=== PATIENT | female | born 1985 | race Caucasian/White ===

== ENCOUNTER 2018-05-10 13:57 | Emergency (ER) | payer OTHER ==
[2018-05-10 14:15] VITALS: BMI 34.0
--- NOTE | 2018-05-10 16:39 | OBHP ---
Datetime: 05/10/2018 16:34 IP Adm Impression: Term, intrauterine ; No Active Labor; Intact Membranes IP Admit Plan: Observation/Evaluation; Discharge home Admit Comment, IP Provider: Patient is a 33-year-old 7 para 2 estimated gestational age 38+ weeks patient presents to labor and delivery complaining of vaginal discharge and leaking for one wee k's duration. Patient reports good movement no vaginal bleeding occasional uterine contractions . care unremarkable Past medical history none Past surgical history none No known drug allergies Social history denies alcohol tobacco use Review of systems patient denies headache chest pain shortness of breath palpitations nausea vomit ing diarrhea heat or cold intolerance easy bruisability musculoskeletal or neurological complaints Vital signs stable afebrile Physical exam see notes Intrauterine at 38+ weeks Sterile speculum exam no pooling noted creamy white discharge noted Sonogram vertex presentation CECILIA 10 Will allow patient to ambulate reexamine possible discharge Pelvic Type - PN: Adequate Extremities - PN: Normal Abdomen - PN: Normal Back - PN: Normal Breast - PN: Not Done Lungs - PN: Normal Heart - PN: Normal Thyroid - PN: Normal Neurologic - PN: Normal HEENT - PN: Normal General - PN: Normal Presentation-Admit: Vertex FHR - Baseline A Provider: 145 Gestation - Est Wks by US: 38.0 Pool Provider: Negative Vital Signs Provider: Reviewed IP Chief Complaint: Uterine contractions; Suspected ruptured membranes NICHD Variability Prov Fetus A: Moderate 6-25bpm NICHD Accel Fetus A IP Provider: [id number] FHR Category Provider Fetus A: Category I NICHD Decel Fetus A IP Provider: None Dilatation, Provider: 1 Effacement, Provider: 50 Station, Provider: -2 Genitourinary Exam: Normal DTRs - PN: Normal
[2018-05-10 22:11] VITALS: BP 117/77; PULSE 78; RESP 18; TEMP 98.4; O2SAT 99
== END 2018-05-10 17:45 | disposition home or self-care (01) ==
LOC: H.EROB2 13:57
DX: O34.63 Maternal care for abnormality of vagina, third trimester (principal); N89.8 Other specified noninflammatory disorders of vagina; Z3A.38 38 weeks gestation of pregnancy; O47.1 False labor at or after 37 completed weeks of gestation

== ENCOUNTER 2018-05-11 08:51 | Inpatient (IN) | payer OTHER ==
[2018-05-11 10:28] VITALS: BMI 32.5
--- NOTE | 2018-05-11 13:31 | US ---
Date of service: 05/11/2018 PROCEDURE: OB Pelvic Ultrasound HISTORY: patient states decreased FM LMP: July 2017 COMPARISON: None available. FINDINGS: UTERUS: Placenta: Fundal/ posterior. Presentation: Cephalic BPD: 8.8 cm compatible with estimated gestational age of 35 weeks, 4 days. HC: 31.8 cm compatible with estimated gestational age of 35 weeks, 6 days. AC: 31.4 cm with estimated gestational age of 35 weeks, 2 days. FL: 7.2 cm compatible with estimated gestational age of 36 weeks, 5 days. Heart rate: 148 bpm. age (Ultrasound estimated): 35 weeks, 6 days Joanna-gestational hemorrhage: None. Date of delivery (Ultrasound estimated) : 06/09/2018 CECILIA: 7.71 cm Estimated weight: 2754 grams 4 13.1 grams (6 pounds 1 ounce 15 ounce) Breathing movements: 2 movements: 2 Tone: 2 Amniotic Fluid: 2 CERVIX: Measures 3.1 cm. Long and closed. No cervical abnormality seen. FREE FLUID: None. OTHER FINDINGS: None. IMPRESSION: Biophysical profile score: 8/8.
[2018-05-11 16:11] LABS: BASO % 0.4 % (0.0-2.0); EOS % 0.5 % (0.0-4.0); HEMOGLOBIN 13.7 g/dL (12.0-16.0); LYMPH % 24.8 % (20.0-40.0); MEAN CELL VOLUME 90.8 fl (81.0-99.0); MEAN CORPUSCULAR HEMOGLOBIN 31.8 pg (27.0-31.0); MONO # 0.6 K/uL (0.0-0.8); MONO % 7.3 % (0.0-10.0); NEUT # 5.3 K/uL (1.8-7.0); NRBC % 0.1 % (0.0-0.0); RBC 4.31 Mil/uL (3.80-5.20); RED CELL DISTRIBUTION WIDTH 13.6 % (11.5-14.5)
--- NOTE | 2018-05-11 22:50 | OBADHP ---
Datetime: 05/11/2018 10:30 Admit Comment, IP Provider: PNP: [facility] LMP; 08/11/2017 33 y/o at 39 wks is c/o some vaginal spotting _ decreased movement. Pt denied any contractions. Patient was here yesterday c/o vaginal discharge _ leaking of fluid x 1 wk. At that ti me, speculum exam was done. No pooling noted, but there was a white, creamy discharge. OBGYNhx: DNC- 2001 - 2005 termination of x -2016 2 living children, , M x 2 PMHx: none Allergies: none Meds: prenatals Surghx: termination of x -2016 Abscess removed -2007 - 2005 DNC- 2001 Sochx: neg for tobacco, EtOH or elicit drug use ROS: neg for cp/sob, blurred vision or abdominal pain PE: gen: well appearing female in no acute distress cardio: s1s2, no mumurs resp: clear to auscultation b/l Abd; BS + Ext: calves nontender A/P: 3 y/o at 39 wks based off of LMP (08/11/2018) 1. Vaginal spotting _ decreased FM- NST performed, reactive with mod variability; will send pt for BPP. -Patient admitted for induction of labor; Fetus found to be small for gestational age. Will start cervidil. Case discussed with Dr. Jake Card PGY-1 Addendum: @39 weeks gestational age presents with complaints of spotting. While at [facility], heart tr acing category 1 biophysical profile 8 out of 8. Estimated weight consistent with 35 weeks gest ational age. All records reviewed. Patient with good dating, first ultrasound at approximate ly 11 weeks confirmed estimated due date 05/18/2018 I discussed these findings with patient and discussed options with patient. I discussed the option of expectant management versus induction of labor. After discussion of all options, patient opted fo r induction of labor. Discussed with patient the risks, benefits, alternatives of induction and all p atient questions answered. Cervidil placed vaginally. Extremities - PN: Normal Abdomen - PN: Normal Lungs - PN: Normal Heart - PN: Normal General - PN: Normal FHR - Baseline A Provider: 140s Membranes, Provider: Intact Contraction Comments Provider: none Gestation - Est Wks by US: 39.0 IP Hx Assessment: The History has been Reviewed and is Current Vital Signs Provider: Reviewed; Within Normal Limits IP Chief Complaint: Other NICHD Variability Prov Fetus A: Moderate 6-25bpm NICHD Accel Fetus A IP Provider: [id number] FHR Category Provider Fetus A: Category I NICHD Decel Fetus A IP Provider: None Dilatation, Provider: 0 Effacement, Provider: 0 Station, Provider: -3 EGA AdmitDate IP: 39.0 IP Adm Impression: Term, intrauterine IP Admit Plan: Observation/Evaluation Datetime: 05/10/2018 16:34 Pelvic Type - PN: Adequate Back - PN: Normal Breast - PN: Not Done Thyroid - PN: Normal Neurologic - PN: Normal HEENT - PN: Normal Presentation-Admit: Vertex Pool Provider: Negative Genitourinary Exam: Normal DTRs - PN: Normal
[2018-05-12] MEDS: Lactated Ringer's 1,000 ML IV SCH ×3 (00:40→04:53)
[2018-05-12] MEDS ORDERED: Fentanyl/Bupivacaine HCl 250 ML EPI ONE (04:08)
[2018-05-12] MEDS ORDERED: Oxytocin 30 units/LR 500ML 30 U/500 ML BAG IV ONE (08:09)
[2018-05-12] MEDS ORDERED: Lidocaine 1% PF (5ml) Amp INJ ONE (08:10)
[2018-05-12] MEDS ORDERED: OXYTOCIN/0.9 % NS 20 UNIT/1,000 ML BAG IV SCH ×2 (08:30→12:32)
[2018-05-12] MEDS ORDERED: Lidocaine Hydrochloride 0 ML INJ ONE (09:13)
[2018-05-12] MEDS ORDERED: Oxycodone/Acetaminophen 5/325 mg Tab PO PRN ×2 (09:41→12:32)
--- NOTE | 2018-05-12 09:43 | OBDS ---
DELIVERY PERSONNEL Anesthesiologist: Marilin Tate MD MATERNAL INFORMATION Delivery Anesthesia: Epidural Provider Comments: of live female over intact perineum, REGINALD presentation, 06/23, mouth and nuse suctioned, cord clamped and cut, cord blood obtained, placenta delivered spontaneously, fundus firm, no lacerations to repair, EBL = 50mL LABOR SUMMARY EDC: 05/18/2018 00:00 No. Babies in Womb: 1 Labor Anesthesia: Epidural LABOR INFORMATION Reason for Induction: Intrauterine Growth Retardation Onset of Labor: 05/12/2018 05:15 Cervical Ripening Agents: Cervidil (Annotations: discontinued.) Group B Beta Strep: Negative (Annotations: Data stored by N on behalf of user)
[2018-05-12] MEDS ORDERED: Oxytocin 30 UNITS in Sodium Chloride 0.9% 500 ML IV ONE (09:45)
[2018-05-13 07:19] LABS: MEAN CELL VOLUME 90.2 fl (81.0-99.0); MEAN CORPUSCULAR HEMOGLOBIN 32.2 pg (27.0-31.0); MEAN CORPUSCULAR HGB CONC 35.6 g/dL (33.0-37.0); RBC 3.72 Mil/uL (3.80-5.20); RED CELL DISTRIBUTION WIDTH 13.5 % (11.5-14.5); WHITE BLOOD COUNT 13.8 K/uL (4.8-10.8)
--- NOTE | 2018-05-13 15:46 | OBPPN ---
Datetime: 05/13/2018 07:10 PP Pain Prov: Within normal limits PP Nausea Prov: Denies PP Flatus Prov: Yes PP BM Prov: Yes PP Breasts Prov: Normal PP Heart Prov: Normal PP Lungs Prov: Normal PP Abdomen/Uterus Prov: Normal PP Lochia Prov: Normal PP CVA Tenderness Prov: Normal PP Extremities Prov: Normal PP C/S Incision Prov: Not Applicable PP Progress Prov: Normal PP Impression Prov: Normal progression PP Plan Prov: Continue present management PP Progress Note Prov: S: Pt is a 33 yo 39 wk s/p on 05/12/18 PPD 1. Seen and examined a t bedside this am. Patient denies any significant overnight events. Reports mild pelvic pain which i s controlled with pain medicine. OOB/Ambulation well without dizziness. Breast feeding without diffic ulty. Tolerating regular diet. Lochia is similar to menses. Voiding freely with no blood noted, Carey ent has had a bowel movement, and is passing gas per rectum. Denies fever/chills, diarrhea, nausea/vo miting, CP/SOB , Lightheadedness. O: BP:101/52, HR:76, T98.7F CBC-13.7/39.1, blood type: A+, rubella: Immune PHYSICAL EXAM: GEN: AAOx3, Resting comfortably in bed, NAD HEENT: NCAT, White sclera, pink conjunctiva, oral mucosa moist. LUNGS: CTA B/L, no wheezing, rhonchi, or rales, B/L chest rise CVS: RRR, S1, S2, No murmurs, rubs, gallops ABD: ND, +BS, firm fundus @ umbilical level. Soft, appropriate TTP EXT: no edema, negative Constanza's sign, calves non tender NEURO/Psych: no gross focal deficit, preserved affect and mood. A/P 33y/o post , had a on 05/12/18 @ 9:35am. Pt afebrile, tolerating pain with medic ation, tolerating regular diet, adequate urine output. Encouraged breast feeding and ambulation Ibuprofen 600mg mild pain PNV 1 tab po daily Post op contraception - wants tubes tied F/U 4-6 weeks for post- visit at [facility] Tina Retana M.D. PGY-1 Patient was seen and case discussed with Dr. Ortiz [facility] addendum: pt seen _ examined by me. agree w/ above assessment and plan. IP PP Procedures: None Vital Signs Provider PP: Reviewed; Within Normal Limits
--- NOTE | 2018-05-14 07:15 | OBPPN ---
Datetime: 05/14/2018 07:09 PP Pain Prov: Within normal limits PP Abdomen/Uterus Prov: Normal PP Lochia Prov: Normal PP Extremities Prov: Normal PP Progress Prov: Normal PP Impression Prov: Normal progression PP Plan Prov: Discharge PP Progress Note Prov: PPD 2 s/p , doing well, breast feeding Discharge home today Vital Signs Provider PP: Reviewed; Within Normal Limits
[2018-05-14 20:46] VITALS: BP 111/66; PULSE 85; RESP 20; TEMP 98.1; O2SAT 99
--- NOTE | 2018-06-02 09:07 | OBHP ---
Datetime: 05/11/2018 10:30 IP Adm Impression: Term, intrauterine IP Admit Plan: Observation/Evaluation Admit Comment, IP Provider: PNP: [facility] LMP; 08/11/2017 33 y/o at 39 wks is c/o some vaginal spotting _ decreased movement. Pt denied any contractions. Patient was here yesterday c/o vaginal discharge _ leaking of fluid x 1 wk. At that ti me, speculum exam was done. No pooling noted, but there was a white, creamy discharge. OBGYNhx: DNC- 2001 - 2005 termination of x -2016 2 living children, , M x 2 PMHx: none Allergies: none Meds: prenatals Surghx: termination of x -2016 Abscess removed -2007 - 2005 DNC- 2001 Sochx: neg for tobacco, EtOH or elicit drug use ROS: neg for cp/sob, blurred vision or abdominal pain PE: gen: well appearing female in no acute distress cardio: s1s2, no mumurs resp: clear to auscultation b/l Abd; BS + Ext: calves nontender A/P: 3 y/o at 39 wks based off of LMP (08/11/2018) 1. Vaginal spotting _ decreased FM- NST performed, reactive with mod variability; will send pt for BPP. -Patient admitted for induction of labor; Fetus found to be small for gestational age. Will start cervidil. Case discussed with Dr. Jake Card PGY-1 Addendum: @39 weeks gestational age presents with complaints of spotting. While at [facility], heart tr acing category 1 biophysical profile 8 out of 8. Estimated weight consistent with 35 weeks gest ational age. All records reviewed. Patient with good dating, first ultrasound at approximate ly 11 weeks confirmed estimated due date 05/18/2018 I discussed these findings with patient and discussed options with patient. I discussed the option of expectant management versus induction of labor. After discussion of all options, patient opted fo r induction of labor. Discussed with patient the risks, benefits, alternatives of induction and all p atient questions answered. Cervidil placed vaginally. Extremities - PN: Normal Abdomen - PN: Normal Lungs - PN: Normal Heart - PN: Normal General - PN: Normal FHR - Baseline A Provider: 140s Membranes, Provider: Intact Contraction Comments Provider: none Gestation - Est Wks by US: 39.0 IP Hx Assessment: The History has been Reviewed and is Current EGA AdmitDate IP: 39.0 Vital Signs Provider: Reviewed; Within Normal Limits IP Chief Complaint: Other NICHD Variability Prov Fetus A: Moderate 6-25bpm NICHD Accel Fetus A IP Provider: [id number] FHR Category Provider Fetus A: Category I NICHD Decel Fetus A IP Provider: None Dilatation, Provider: 0 Effacement, Provider: 0 Station, Provider: -3
--- NOTE | 2018-06-07 08:53 | OBDCSUM ---
Datetime: 05/14/2018 08:41 Discharge Instructions, Provider: Routine instructions given Discharge Diagnosis, Provider: Term Delivered
== END 2018-05-14 11:00 | disposition home or self-care (01) | DRG 373 ==
LOC: H.EROB2 08:51 → H.L&D 09:20 → H.EROB2 15:38 → H.OB/GYN 05-12 12:56
PROVIDERS: ADMIT Obstetrics & Gynecology; ATTEND Obstetrics & Gynecology
PROC: 4A1HXCZ Monitoring of Products of Conception, Cardiac Rate, External Approach (ICD-10-PCS; 2018-05-11)
PROC: 10E0XZZ Delivery of Products of Conception, External Approach (ICD-10-PCS; principal; 2018-05-12)
DX: O36.5930 Maternal care for other known or suspected poor fetal growth, third trimester, not applicable or unspecified (principal); O36.8130 Decreased fetal movements, third trimester, not applicable or unspecified; Z37.0 Single live birth; Z3A.39 39 weeks gestation of pregnancy; O09.523 Supervision of elderly multigravida, third trimester